=== PATIENT | female | born 1990 | race Caucasian/White ===

== ENCOUNTER 2016-12-13 19:14 | Emergency (ER) | payer SELFPAY ==
[~2016-12-13] VITALS: Ht 165.1 cm; Wt 70.3 kg
[~2016-12-13 19:14] MED LIST: ALPR.25T PO; DIAZ5TAB3 PO; FAMO20TA5 PO; FLUO20CA42 PO; ONDA-42 SL; ONDA8TAB13 PO; PROM25TA14 PO; SCR1T PO; SULF-222 PO
[2016-12-13] MEDS ORDERED: LACTATED RINGERS 1,000 ML IV ONE (19:55)
[2016-12-13] MEDS ORDERED: PROM25TA14 PO (19:55)
[2016-12-13 20:03] LABS: BILIRUBIN,URINE NEGATIVE (NEGATIVE); KETONES,URINE NEGATIVE (NEGATIVE); LEUKOCYTE ESTERASE ,URINE NEGATIVE (NEGATIVE); NITRITE,URINE NEGATIVE (NEGATIVE); PH,URINE 8 (5-9); PROTEIN,URINE NEGATIVE (NEGATIVE); UROBILINOGEN,URINE NORMAL (NORMAL)
[2016-12-13 20:27] LABS: BASOPHILS % (AUTO) 0 % (0-10); EOSINOPHILS % (AUTO) 1 % (0-10); LYMPHOCYTES # (AUTO) 1.8 X 10^3 (1.0-4.0); LYMPHOCYTES % (AUTO) 31 % (12-44); MEAN CORPUSCULAR HEMOGLOBIN 30 PG (25-34); MEAN CORPUSCULAR HGB CONC 34 G/DL (32-36); MEAN CORPUSCULAR VOLUME 89 FL (80-99); MEAN PLATELET VOLUME 10.6 FL (7.4-10.4); MONOCYTES # (AUTO) 0.6 X 10^3 (0.0-1.0); MONOCYTES % (AUTO) 11 % (0-12); NEUTROPHILS # (AUTO) 3.3 X 10^3 (1.8-7.8); NEUTROPHILS % (AUTO) 57 % (42-75); PLATELET COUNT 193 10^3/uL (130-400); RED BLOOD COUNT 4.59 10^6/uL (4.35-5.85); RED CELL DISTRIBUTION WIDTH 13.2 % (10.0-14.5); WHITE BLOOD COUNT 5.7 10^3/uL (4.3-11.0)
[2016-12-13 20:50] LABS: ALANINE AMINOTRANSFERASE 12 U/L (0-55); ALBUMIN 4.6 G/DL (3.2-4.5); AMYLASE 55 U/L (25-125); ANION GAP 9 MMOL/L (5-14); ASPARTATE AMINO TRANSFERASE 15 U/L (5-34); BILIRUBIN,TOTAL 1.2 MG/DL (0.1-1.0); BLOOD UREA NITROGEN 9 MG/DL (7-18); BUN/CREATININE RATIO 12; CALCIUM 9.4 MG/DL (8.5-10.1); CARBON DIOXIDE 23 MMOL/L (21-32); CHLORIDE 106 MMOL/L (98-107); CREATININE SERUM 0.75 MG/DL (0.60-1.30); GFR ESTIMATED > 60; GLUCOSE 84 MG/DL (70-105); LIPASE 15 U/L (8-78); MAGNESIUM 2.3 MG/DL (1.8-2.4); POTASSIUM 3.8 MMOL/L (3.6-5.0); SODIUM 138 MMOL/L (135-145)
[2016-12-13 20:52] LABS: ALCOHOL < 10 MG/DL (<10)
[2016-12-13 21:12] LABS: TROPONIN I < 0.30 NG/ML (<0.30)
--- NOTE | 2016-12-13 21:27 | ED General ---
General Chief Complaint: General Problems/Pain Stated Complaint: DIZZINESS,WEAKNESS Nursing Triage Note: Pt. advised she has been experiencing night sweats, has a hx. of chronic fatigue syndrome and advises pain in her hands. Pt. states she has had periods of nausea and dizziness for several weeks that has not improved. Nursing Sepsis Screen: No Definite Risk Source of Information: Patient History of Present Illness Time Seen by Provider: 19:55 Initial Comments PT ARRIVES VIA POV MULTIPLE COMPLAINTS PT STATES SHE "JUST HASN'T FELT GOOD FOR A COUPLE OF WEEKS" STATES SHE FEELS "WEAK AND DIZZY" PT STATES SHE HAS HAD NAUSEA AND DRY HEAVES OFF AND ON--THIS IS CHRONIC FOR YEARS AND IS NO DIFFERENT NOW. HAS PROMETHAZINE, BUT HAS NOT TAKEN ANY RECENTLY NO ABDOMINAL PAIN NO DIARRHEA NO FEVER ATE RAMEN NOODLES THIS AM, A COUPLE OF HOT DOGS AND SAUERKRAUT AND FRIED POTATOES AT 1500 TODAY. DRINKING FLUIDS WELL. NO COUGH / CONGESTION STATES SHE NEVER FEELS LIKE SHE IS GETTING ENOUGH AIR IN WHEN SHE BREATHES-- THIS IS ALSO A CHRONIC PROBLEM FOR YEARS AND IS NO DIFFERENT TODAY STATES SHE HAS HAD CHEST PAIN THIS AM--THIS IS ALSO A CHRONIC PROBLEM FOR MANY YEARS AND HAS SEEN MULTIPLE PROVIDERS AT MULTIPLE FACILITIES AND REPORTS THAT "THEY CAN'T EVER FIND ANYTHING WRONG" PT STATES SHE IS IS TRYING TO QUIT METH AND ALCOHOL STATES SHE LAST USED METH 2 DAYS AGO STATES SHE HAS BEEN DRINKING OVER 10 BEERS / DAY FOR THE LAST FEW MONTHS--LAST ETOH WAS AT 0100 PT STATES SHE " FROM HER 6 MONTHS AGO, BUT WE STILL LIVE TOGETHER" PT HAS NOT SOUGHT CARE FOR DRUG/ALCOHOL ABUSE IN THE PAST STATES SHE HAD AN APPOINTMENT AT [facility] LAST WEEK TO TRY TO GET OUTPATIENT TREATMENT FOR SUBSTANCE ABUSE BUT SHE "MISSED HER APPOINTMENT" AND HAS NOT ATTEMPTED TO RESCHEDULE. PCP:[facility] Allergies and Home Medications Allergies Coded Allergies: Penicillins (Verified Allergy, Intermediate, ANAPHYLAXIS, 12/30/11) Home Medications Promethazine HCl 25 Mg Tablet 25 MG PO Q6H PRN PRN NAUSEA/VOMITING (Reported) Constitutional: see HPI dizziness malaise weakness EENTM: no symptoms reported Respiratory: see HPINo cough Cardiovascular: see HPI Gastrointestinal: see HPINo abdominal pain, nauseaNo vomiting Genitourinary: no symptoms reported : No (NO CONTROL) LMP: Nov 30, 2016 Musculoskeletal: no symptoms reported Skin: no symptoms reported Psychiatric/Neurological: See HPIDenies Headache, Denies Numbness, Denies Paresthesia, Denies Seizure, Denies Tingling, Denies Tremors, Denies Weakness Hematologic/Lymphatic: No Symptoms Reported Immunological/Allergic: no symptoms reported Past Rledmje-Oryipt-Pxwoga Hx Patient Social History Alcohol Use: Regular Use (> 10 BEERS/DAY) Recreational Drug Use: Yes (METH, THC--DENIES IV DRUG USE) Drug of Choice: methamphetamine Smoking Status: Current Everyday Smoker (1 PPD) Type Used: Cigarettes, Pipe Recent Foreign Travel: No Contact w/Someone Who Travel: No Recent Infectious Disease Expo: No Recent Hopitalizations: No Immunizations Up To Date Tetanus Booster (TDap): Unknown Seasonal Allergies Seasonal Allergies: No Surgeries HX Surgeries: Yes (LEEP, DENTAL) Respiratory Hx Respiratory Disorders: No Cardiovascular Hx Cardiac Disorders: No Neurological Hx Neurological Disorders: No Reproductive System : No Hx Reproductive Disorders: Yes (CERVICAL DYSPLASIA--S/P LEEP) Sexually Transmitted Disease: No Genitourinary Hx Genitourinary Disorders: No Genitourinary Disorders: UTI-Chronic Gastrointestinal Hx Gastrointestinal Disorders: Yes (GASTRITIS) Gastrointestinal Disorders: Chronic Constipation, Chronic Diarrhea, Esophagitis , Irritable Bowel Musculoskeletal Hx Musculoskeletal Disorders: No Endocrine Hx Endocrine Disorders: No HEENT HX ENT Disorders: Yes (CHRONIC DENTAL PROBLEMS) Cancer Hx Cancer: No (CERVICAL DYSPLASIA--NOT ACTUAL CANCER, PER PT) Psychosocial Hx Psychiatric Problems: Yes Behavioral Health Disorders: Anxiety, PTSD, Depression Integumentary HX Skin/Integumentary Disorder: No Blood Transfusions Hx Blood Disorders: No Physical Exam Vital Signs Vital Sign - Last 12Hours 12/13/16 19:35 Temp 98.6 Pulse 85 Resp 16 B/P 138/78 Pulse Ox 100 O2 Delivery Room Air Capillary Refill : Less Than 3 Seconds General Appearance: No Apparent Distress WD/WN Other (DIRTY, MALODOROUS, VERY UNKEMPT, MULTIPLE SORES/SCARS/SCABS TO FACE) HEENT: PERRL/EOMI Normal ENT Inspection (EXCEPT POOR DENTITION) Neck: Full Range of Motion Normal Inspection Non Tender Supple Respiratory: Normal Breath Sounds No Accessory Muscle Use No Respiratory Distress Cardiovascular: Regular Rate, Rhythm No Edema No JVD No Murmur Normal Peripheral Pulses Gastrointestinal: Normal Bowel Sounds No Organomegaly No Pulsatile Mass Non Tender Soft Back: Normal Inspection No CVA Tenderness No Vertebral Tenderness Extremity: Normal Capillary Refill Normal Inspection Normal Range of Motion Non Tender No Calf Tenderness No Pedal Edema Neurologic/Psychiatric: Alert Oriented x3 No Motor/Sensory Deficits Normal Mood/Affect compliance review specialist II-XII Norm as TestedNo Abnormal Cerebellar Tests, Other ( SPEECH CLEAR, GAIT STEADY. PT VERY COOPERATIVE) Skin: Normal Color Warm/Dry Progress/Results/Core Measures Results/Orders Lab Results Laboratory Tests Test 12/13/16 19:28 12/13/16 20:09 Range/Units Ur Tricyclic Antidepressants Screen NEGATIVE NEGATIVE Urine Amphetamines Screen NEGATIVE NEGATIVE Urine Bacteria TRACE /HPF Urine Barbiturates Screen NEGATIVE NEGATIVE Urine Benzodiazepines Screen NEGATIVE NEGATIVE Urine Bilirubin NEGATIVE NEGATIVE Urine Cannabinoids Screen NEGATIVE NEGATIVE Urine Casts NONE /LPF Urine Clarity CLEAR Urine Cocaine Screen NEGATIVE NEGATIVE Urine Color YELLOW Urine Crystals NONE /LPF Urine Culture Indicated NO Urine Glucose (UA) NEGATIVE NEGATIVE Urine Ketones NEGATIVE NEGATIVE Urine Leukocyte Esterase NEGATIVE NEGATIVE Urine Methadone Screen NEGATIVE NEGATIVE Urine Methamphetamines Screen NEGATIVE NEGATIVE Urine Mucus NEGATIVE /LPF Urine Nitrite NEGATIVE NEGATIVE Urine Opiates Screen NEGATIVE NEGATIVE Urine Oxycodone Screen NEGATIVE NEGATIVE Urine Phencyclidine Screen NEGATIVE NEGATIVE Urine Propoxyphene Screen NEGATIVE NEGATIVE Urine Protein NEGATIVE NEGATIVE Urine RBC NONE /HPF Urine RBC (Auto) NEGATIVE NEGATIVE Urine Specific [place] 1.010 L 1.016-1.022 Urine Squamous Epithelial Cells 5-10 /HPF Urine Urobilinogen NORMAL NORMAL MG/DL Urine WBC NONE /HPF Urine pH 8 5-9 Alanine Aminotransferase (ALT/SGPT) 12 0-55 U/L Albumin 4.6 H 3.2-4.5 G/DL Alkaline Phosphatase 52 40-136 U/L Amylase Level 55 25-125 U/L Anion Gap 9 5-14 MMOL/L Aspartate Amino Transf (AST/SGOT) 15 5-34 U/L BUN/Creatinine Ratio 12 Basophils # (Auto) 0.0 0.0-0.1 10^3/uL Basophils (%) (Auto) 0 0-10 % Blood Urea Nitrogen 9 7-18 MG/DL Calcium Level 9.4 8.5-10.1 MG/DL Carbon Dioxide Level 23 21-32 MMOL/L Chloride Level 106 98-107 MMOL/L Creatinine 0.75 0.60-1.30 MG/DL Eosinophils # (Auto) 0.0 0.0-0.3 10^3/uL Eosinophils (%) (Auto) 1 0-10 % Estimat Glomerular Filtration Rate > 60 Glucose Level 84 70-105 MG/DL Hematocrit 41 35-52 % Hemoglobin 13.9 11.5-16.0 G/DL Lipase 15 8-78 U/L Lymphocytes # (Auto) 1.8 1.0-4.0 X 10^3 Lymphocytes (%) (Auto) 31 12-44 % Magnesium Level 2.3 1.8-2.4 MG/DL Mean Corpuscular Hemoglobin 30 25-34 PG Mean Corpuscular Hemoglobin Concent 34 32-36 G/DL Mean Corpuscular Volume 89 80-99 FL Mean Platelet Volume 10.6 H 7.4-10.4 FL Monocytes # (Auto) 0.6 0.0-1.0 X 10^3 Monocytes (%) (Auto) 11 0-12 % Neutrophils # (Auto) 3.3 1.8-7.8 X 10^3 Neutrophils (%) (Auto) 57 42-75 % Platelet Count 193 130-400 10^3/uL Potassium Level 3.8 3.6-5.0 MMOL/L Red Blood Count 4.59 4.35-5.85 10^6/uL Red Cell Distribution Width 13.2 10.0-14.5 % Serum Alcohol < 10 <10 MG/DL Sodium Level 138 135-145 MMOL/L TSH [place] Testing 1.07 0.35-4.94 UIU/ML Total Bilirubin 1.2 H 0.1-1.0 MG/DL Total Protein 7.0 6.4-8.2 G/DL Troponin I < 0.30 <0.30 NG/ML White Blood Count 5.7 4.3-11.0 10^3/uL My Orders Orders-KATHRINE GUALLPA DO Saline Lock/Iv-Start (12/13/16 19:55) Urine Bedside (12/13/16 19:55) Ekg Tracing (12/13/16 19:55) Monitor-Rhythm Ecg Trace Only (12/13/16 19:55) Alcohol (12/13/16 19:55) Amylase (12/13/16 19:55) Cbc With Automated Diff (12/13/16 19:55) Comprehensive Metabolic Panel (12/13/16 19:55) Drug Screen Stat (Urine) (12/13/16 19:55) Lipase (12/13/16 19:55) Magnesium (12/13/16 19:55) Thyroid Analyzer (12/13/16 19:55) Troponin I (12/13/16 19:55) Ua Culture If Indicated (12/13/16 19:55) Saline Lock/Iv-Start (12/13/16 19:55) Lactated Ringers (Lr 1000 Ml Iv Solution (12/13/16 19:55) Orthostatic Vital Signs (12/13/16 19:55) Medications Given in ED Vital Signs/I&O Blood Pressure Mean: 98 Point of Care Testing Urine -Bedside: Negative Progress Note : Progress Note UNEVENTFUL ER STAY ECG Initial ECG Impression Time: 20:22 Initial ECG Rate: 70 Initial ECG Rhythm: Normal Sinus Initial ECG Impression: Normal Initial ECG Comparisson: Unchanged Departure Impression Impression: Primary Impression: Alcohol abuse Additional Impressions: Alcohol dependence Methamphetamine abuse Malaise Disposition: 01 HOME, SELF-CARE Condition: Stable Departure-Patient Inst. Referrals: [facility] (PCP/Family) Primary Care Physician Patient Instructions: ALCOHOL AND SUBSTANCE ABUSE Add. Discharge Instructions: LOTS OF CLEAR LIQUIDS--WATER, BROTH, JELLO, GATORADE EAT AT LEAST 3 MEALS A DAY FOLLOW UP WITH [facility] THIS WEEK FOR FURTHER CARE AND SUBSTANCE ABUSE TREATMENT All discharge instructions reviewed with patient and/or family. Voiced understanding. KATHRINE GUALLPA DO Dec 13, 2016 21:27
[2016-12-13 21:45] VITALS: BP 134/96
== END 2016-12-13 21:39 | disposition home or self-care (01) ==
LOC: EDUNIT# 19:14 → ER 19:16
DX: F10.20 Alcohol dependence, uncomplicated (principal); F15.20 Other stimulant dependence, uncomplicated; R53.81 Other malaise; F17.210 Nicotine dependence, cigarettes, uncomplicated
CPT/HCPCS: 36415; 80053; 80306; 80320; 81000; 82150; 83690; 83735; 84443; 84484; 84703; 85025; 93005; 93041; 96360

== ENCOUNTER → 2017-03-15 | Outpatient (CLI) | payer MEDICAID ==
--- NOTE | 2017-03-15 13:26 | Diagnostic Imaging Report ---
PROCEDURE: US OB SINGLE FETUS <14 WKS. TECHNIQUE: Multiple real-time grayscale images were obtained over the gravid uterus in various projections. INDICATION: Dating. FINDINGS: There is a twin intrauterine with a thickened membrane and delta sign, suggestive of a dichorionic twin . The crown-rump length is at 11 weeks and 0 days in both embryos with a corresponding SANAM of 10/04/2017. Embryo A, closer to the cervix and to the right side of the uterus, has a heart rate of 172 BPM. Embryo B, which is fundal and to the left, has a heart rate of 172 BPM as well. IMPRESSION: Dichorionic diamniotic twin . The SANAM is 10/04/2017. Dictated by: Dictated on workstation # [id number]
== END ==
LOC: RAD 10:17
PROVIDERS: ATTEND Family Medicine
DX: Z34.81 Encounter for supervision of other normal pregnancy, first trimester (principal)
CPT/HCPCS: 76801

== ENCOUNTER 2017-04-13 19:25 | Emergency (ER) | payer SELFPAY ==
[~2017-04-13] VITALS: Ht 165.1 cm; Wt 70.3 kg
[2017-04-13] MEDS ORDERED: ONDN4T (19:40)
[2017-04-13] MEDS ORDERED: [UNRECOGNIZED DRUG - CODE] (19:40)
[2017-04-13 20:27] LABS: BILIRUBIN,URINE NEGATIVE (NEGATIVE); KETONES,URINE NEGATIVE (NEGATIVE); LEUKOCYTE ESTERASE ,URINE NEGATIVE (NEGATIVE); NITRITE,URINE NEGATIVE (NEGATIVE); PH,URINE 6.5 (5-9); PROTEIN,URINE NEGATIVE (NEGATIVE); UROBILINOGEN,URINE NORMAL (NORMAL)
[2017-04-13 20:41] LABS: WBC,URINE 0-2 /HPF
--- NOTE | 2017-04-13 20:44 | ED GI ---
General Chief Complaint: Abdominal/GI Problems Stated Complaint: LT SIDED RIB/STOMACH/PELVIC PAIN Nursing Triage Note: c/o constipation for weeks, patient reports she is about 16 weeks with twins Sepsis Screen: No Definite Risk History of Present Illness Time Seen By Provider: 20:05 Initial Comments Patient reports constipation since finding out she is . She does report that she passed several small hard stools today. She often requires digital assistance to evacuate the stool from the rectum. She has had some nausea and vomiting with the and taking Zofran on occasion. She reports that she was initially seen by Dr. Montesinos however since finding out she was having twins, she is recommended referring her to a different OB doctor. She is taking vitamins daily. She states that she has had poor intake of solid and liquid foods. Timing/Duration: Constant Severity/Quality: Moderate Location: Suprapubic Radiation: No Radiation Activities at Onset: None Modifying Factors: Improves With Defecating Associated Symptoms: Nausea/Vomiting Allergies and Home Medications Allergies Coded Allergies: Penicillins (Verified Allergy, Intermediate, ANAPHYLAXIS, 12/30/11) Home Medications Ondansetron HCl 4 Mg Tab, (Reported) Vit/Iron Fumarate/FA 1 Each Tablet, (Reported) Review of Systems Constitutional: no symptoms reported, see HPI EENTM: No Symptoms Reported, See HPI Respiratory: No Symptoms Reported, See HPI Cardiovascular: No Symptoms Reported, See HPI Gastrointestinal: See HPI, Constipated, Poor Appetite, Poor Fluid Intake Genitourinary: No Symptoms Reported, See HPI Musculoskeletal: no symptoms reported, see HPI Skin: no symptoms reported, see HPI Psychiatric/Neurological: No Symptoms Reported, See HPI Endocrine: No Symptoms Reported, See HPI Hematologic/Lymphatic: No Symptoms Reported, See HPI All Other Systems Reviewed Negative Unless Noted: Yes Past Yzucdzi-Rdxabh-Vuauvt Hx Patient Social History Alcohol Use: Past History Recreational Drug Use: No Drug of Choice: methamphetamine Smoking Status: Former Smoker Type Used: Cigarettes, Pipe Recent Foreign Travel: No Contact w/Someone Who Travel: No Recent Infectious Disease Expo: No Recent Hopitalizations: No Immunizations Up To Date Tetanus Booster (TDap): Unknown Seasonal Allergies Seasonal Allergies: No Surgeries HX Surgeries: Yes (LEEP, DENTAL) Respiratory Hx Respiratory Disorders: No Cardiovascular Hx Cardiac Disorders: No Neurological Hx Neurological Disorders: No Reproductive System Hx Reproductive Disorders: Yes (CERVICAL DYSPLASIA--S/P LEEP) Sexually Transmitted Disease: No Genitourinary Hx Genitourinary Disorders: No Genitourinary Disorders: UTI-Chronic Gastrointestinal Hx Gastrointestinal Disorders: Yes (GASTRITIS) Gastrointestinal Disorders: Chronic Constipation, Chronic Diarrhea, Esophagitis , Irritable Bowel Musculoskeletal Hx Musculoskeletal Disorders: No Endocrine Hx Endocrine Disorders: No HEENT HX ENT Disorders: Yes (CHRONIC DENTAL PROBLEMS) Cancer Hx Cancer: No (CERVICAL DYSPLASIA--NOT ACTUAL CANCER, PER PT) Cancer: Cervical Psychosocial Hx Psychiatric Problems: Yes Behavioral Health Disorders: Anxiety, PTSD, Depression Integumentary HX Skin/Integumentary Disorder: No Blood Transfusions Hx Blood Disorders: No Reviewed Nursing Assessment Reviewed/Agree w Nursing PMH: Yes Physical Exam Vital Signs VS - Last 72 Hours, by Label 04/13/17 19:37 Temp 98.2 Pulse 75 Resp 18 B/P (MAP) 139/83 Pulse Ox 100 O2 Delivery Room Air Capillary Refill : Less Than 3 Seconds General Appearance: WD/WN, no apparent distress HEENT: PERRL/EOMI, normal ENT inspection, TMs normal, pharynx normal, other ( oral mucosa is pink and moist) Neck: non-tender, full range of motion, supple, normal inspection Respiratory: chest non-tender, lungs clear, normal breath sounds Cardiovascular: normal peripheral pulses, regular rate, rhythm, no edema, no murmur Gastrointestinal: normal bowel sounds, non tender, soft, no organomegaly, No distended, No guarding, No rebound, No tenderness Extremities: normal range of motion, non-tender, normal inspection, no pedal edema, no calf tenderness, normal capillary refill Back: normal inspection, no CVA tenderness, no vertebral tenderness Neurologic/Psychiatric: no motor/sensory deficits, alert, normal mood/affect, oriented x 3 Skin: normal color, warm/dry Lymphatic: no adenopathy Progress/Results/Core Measures Results/Orders Lab Results Laboratory Tests Test 04/13/17 20:20 Range/Units Urine Color YELLOW Urine Clarity CLEAR Urine pH 6.5 5-9 Urine Specific [place] 1.010 L 1.016-1.022 Urine Protein NEGATIVE NEGATIVE Urine Glucose (UA) NEGATIVE NEGATIVE Urine Ketones NEGATIVE NEGATIVE Urine Nitrite NEGATIVE NEGATIVE Urine Bilirubin NEGATIVE NEGATIVE Urine Urobilinogen NORMAL NORMAL MG/DL Urine Leukocyte Esterase NEGATIVE NEGATIVE Urine RBC (Auto) NEGATIVE NEGATIVE Urine RBC NONE /HPF Urine WBC 0-2 /HPF Urine Squamous Epithelial Cells 2-5 /HPF Urine Crystals NONE /LPF Urine Bacteria FEW H /HPF Urine Casts NONE /LPF Urine Mucus NEGATIVE /LPF Urine Culture Indicated NO My Orders Orders - DANA ANDREW Ua Culture If Indicated (04/13/17 20:22) Vital Signs/I&O Vital Sign - Last 12Hours 04/13/17 19:37 Temp 98.2 Pulse 75 Resp 18 B/P (MAP) 139/83 Pulse Ox 100 O2 Delivery Room Air Blood Pressure Mean: 101 Departure Impression Impression: Primary Impression: Constipation during in second trimester Disposition: HOME, SELF-CARE Condition: Stable Departure-Patient Inst. Referrals: NO,LOCAL PHYSICIAN (PCP) Primary Care Physician Patient Instructions: Constipation, Adult (DC), Nausea and Vomiting of (DC) Add. Discharge Instructions: Increase water intake, 96 ounces a day. Try eating high-fiber foods including fruits and vegetables, specifically 2-3 servings of prunes daily. Try to walk 10-15 minutes 2-3 times a day. Begin taking ragj-dij-hzwbpre stool softener, Colace. Get established with OB Doctor, Try Calling [facility] or [facility]. Unable to get established with them to please call [facility] until your referral is made. Return to emergency department for fever, continued constipation with abdominal pain, poor fluid or food intake, difficulty breathing, vaginal bleeding, or any new complaints. All discharge instructions reviewed with patient and/or family. Voiced understanding. Copy Copies To 1: TARUN MONTESINOS MD, AMY ARNP Apr 13, 2017 20:44
[2017-04-13 20:55] VITALS: BP 139/83
== END 2017-04-13 20:55 | disposition home or self-care (01) ==
LOC: EDUNIT# 19:25 → ER 19:28
DX: O99.612 Diseases of the digestive system complicating pregnancy, second trimester (principal); K59.00 Constipation, unspecified; Z3A.16 16 weeks gestation of pregnancy; Z87.891 Personal history of nicotine dependence
CPT/HCPCS: 81000; 99282

== ENCOUNTER 2021-01-02 23:11 | Outpatient (CLI) | payer MEDICAID ==
[~2021-01-02] VITALS: Ht 160 cm; Wt 88.7 kg
[~2021-01-02 23:11] MED LIST changes: +ONDN4T; +[UNRECOGNIZED DRUG - CODE]
[2021-01-02 23:42] LABS: BILIRUBIN,URINE NEGATIVE (NEGATIVE); CLARITY,URINE SL CLOUDY; COLOR,URINE YELLOW; GLUCOSE, URINE (UA) NEGATIVE (NEGATIVE); KETONES,URINE NEGATIVE (NEGATIVE); LEUKOCYTE ESTERASE ,URINE 1+ (NEGATIVE); NITRITE,URINE NEGATIVE (NEGATIVE); PROTEIN,URINE NEGATIVE (NEGATIVE)
[2021-01-02 23:53] VITALS: BP 130/75
[2021-01-02 23:53] LABS: AMORPHOUS SEDIMENT,UR FEW AMOR URATES /LPF; BACTERIA,URINE MODERATE /HPF
[2021-01-03 00:02] LABS: AMPHETAMINE SCREEN, URINE NEGATIVE (NEGATIVE); BARBITURATE SCREEN URINE NEGATIVE (NEGATIVE); BENZODIAZEPINES SCREEN URINE NEGATIVE (NEGATIVE); CANNABINOID SCREEN, URINE NEGATIVE (NEGATIVE); COCAINE SCREEN URINE NEGATIVE (NEGATIVE); METHADONE STAT NEGATIVE (NEGATIVE); METHAMPHETAMINE SCREEN URINE S NEGATIVE (NEGATIVE); OPIATE SCREEN URINE NEGATIVE (NEGATIVE); OXYCODONE STAT NEGATIVE (NEGATIVE); PROPOXYPHENE STAT NEGATIVE (NEGATIVE); TRICYCLIC ANTIDEPRESSANTS SCRE NEGATIVE (NEGATIVE)
[2021-01-03] MEDS ORDERED: cefTRIAXone 1,000 MG IV (ROCEPHIN) VIAL ONE (00:09)
[2021-01-03] MEDS ORDERED: WATER (STERILE) FOR INJECTION 10 ML ONE (00:10)
[2021-01-03 00:15] VITALS: BP 130/75
[2021-01-03] MEDS ORDERED: cefTRIAXone FOR IV USE 1,000 MG in WATER (STERILE) FOR INJECTION 10 ML IV ONE (00:15)
[2021-01-03] MEDS ORDERED: LACTATED RINGERS 1,000 ML IV SCH (00:15)
--- NOTE | 2021-01-04 08:10 | Physician Query-Final Dx ---
ROBIN TAPIA 01/04/21 0810: Clinic Account Progress/Dx Physician Query: Please give diagnosis Please include # weeks gestation Date of Service Jan 02, 2021 at 23:11 RIAZ VILLAFUERTE MD 01/04/21 1404: Clinic Account Progress/Dx DIAGNOSIS: Diagnosis contractions 33 weeks gestation Left against medical advice ROBIN TAPIA Jan 04, 2021 08:10 RIAZ VILLAFUERTE MD Jan 04, 2021 14:04
== END 2021-01-03 01:55 | disposition left against medical advice (07) ==
LOC: WSo 23:11 → LDRP 23:11 → WSo 01-03 01:55
PROVIDERS: ATTEND Family Medicine
DX: O62.9 Abnormality of forces of labor, unspecified (principal); Z3A.33 33 weeks gestation of pregnancy
CPT/HCPCS: 80306; 81000; 87088; 96361; 96374; G0463; 99213

== ENCOUNTER 2021-01-06 09:43 | Outpatient (CLI) | payer MEDICAID ==
[~2021-01-06] VITALS: Ht 160 cm; Wt 89.0 kg
[2021-01-06 10:05] VITALS: BP 123/66
[2021-01-06 10:09] VITALS: BP 123/66
[2021-01-06 12:06] LABS: BILIRUBIN,URINE NEGATIVE (NEGATIVE); CLARITY,URINE CLEAR; COLOR,URINE YELLOW; GLUCOSE, URINE (UA) NEGATIVE (NEGATIVE); KETONES,URINE NEGATIVE (NEGATIVE); LEUKOCYTE ESTERASE ,URINE NEGATIVE (NEGATIVE); NITRITE,URINE NEGATIVE (NEGATIVE); PROTEIN,URINE NEGATIVE (NEGATIVE)
[2021-01-06 12:11] LABS: BACTERIA,URINE FEW /HPF
[2021-01-06 12:12] LABS: GRANULAR CASTS,URINE RARE /LPF
[2021-01-06 13:20] VITALS: BP 123/66
--- NOTE | 2021-01-07 08:25 | Physician Query-Final Dx ---
ROBIN TAPIA 01/07/21 0825: Clinic Account Progress/Dx Physician Query: Please give diagnosis Please include # weeks gestation Date of Service Jan 06, 2021 at 09:43 MARIUSZ ACOSTA DO 01/09/21 181: Clinic Account Progress/Dx DIAGNOSIS: Diagnosis 33 week GA Abdominal pain Diarrhea ROBIN TAPIA Jan 07, 2021 08:25 MARIUSZ ACOSTA DO Jan 09, 2021 18:11
== END 2021-01-06 13:20 | disposition home or self-care (01) ==
LOC: WSo 09:43 → LDRP 09:44 → WSo 13:20
PROVIDERS: ATTEND Family Medicine
DX: O26.893 Other specified pregnancy related conditions, third trimester (principal); Z3A.33 33 weeks gestation of pregnancy
CPT/HCPCS: 81000; 87804; G0463; U0002; 87635; 99213

== ENCOUNTER 2021-01-08 04:59 | Emergency (ER) | payer MEDICAID ==
[~2021-01-08] VITALS: Ht 160 cm; Wt 85.7 kg
[2021-01-08 05:07] VITALS: BP 147/83
--- NOTE | 2021-01-08 05:33 | ED GU-Female ---
General Chief Complaint: OB > 20 WEEKS Stated Complaint: 34 WK PREG,LABOR Nursing Triage Note: PT AMBULATE TO ROOM FS02 WITH C/O CONTRACTIONS EVERY 3 MINUTES FOR OVER AN HOUR. PT REPORTS SHE LIVES IN [place], [place] AND CAME TO [facility] BECAUSE SHE WAS SEEN AT [facility] IN . PT REPORTS SHE IS 34 WEEKS . PT REPORTS THAT SHE IS SUPPOSED TO DELIVER IN [facility] AND THAT HER MOM WANTED HER TO COME TO [facility] BECAUSE SHE WAS SEEN AT [facility] IN . Nursing Sepsis Screen: No Definite Risk Source: patient History of Present Illness Date Seen by Provider: Jan 08, 2021 Time Seen by Provider: 05:15 Initial Comments Patient is a G2, P2, 34-week gestation female who presents with uterine contractions every 3 to 5 minutes starting proximal 2 hours ago. No rupture of membranes. Patient states she has been dilated for 3 for the past couple weeks. No complications with current . Patient's OB is Dr. Montesinos out of [facility] Timing/Duration: just prior to arrival Severity/Quality: moderate Location: suprapubic Radiation: suprapubic Activities at Onset: other Sexual [place] History: other Modifying Factors: Improves With Other Associated Symptoms: denies symptoms Allergies and Home Medications Allergies Coded Allergies: Penicillins (Verified Allergy, Intermediate, ANAPHYLAXIS, 12/30/11) Patient Home Medication List Home Medication List Reviewed: Yes Review of Systems Review of Systems Constitutional: see HPI EENTM: see HPI Respiratory: see HPI Cardiovascular: see HPI Genitourinary: see HPI : Yes Musculoskeletal: see HPI Skin: see HPI Endocrine: See HPI Hematologic/Lymphatic: See HPI All Other Systemes Reviewed Negative Unless Noted: Yes Past Ayftbky-Oujhuv-Oprypn Hx Past Med/Social Hx: Reviewed Nursing Past Med/Soc Hx Patient Social History Alcohol Use: Occasionally Uses Number of Drinks Today: AA Alcohol Beverage of Choice: Beer Drug of Choice: methamphetamine Smoking Status: Former Smoker Type Used: Cigarettes Former Smoker, Quit: Sep 08, 2020 2nd Hand Smoke Exposure: Yes Recent Infectious Disease Expo: No Recent Hopitalizations: No Immunizations Up To Date Tetanus Booster (TDap): Unknown Date of Influenza Vaccine: Sep 23, 2020 Seasonal Allergies Seasonal Allergies: No Past Medical History Surgeries: Yes (LEEP, DENTAL) Respiratory: No Cardiac: No Neurological: No Reproductive Disorders: Yes (CERVICAL DYSPLASIA--S/P LEEP) Sexually Transmitted Disease: No UTI-Chronic Gastrointestinal: Yes (GASTRITIS) Chronic Constipation, Chronic Diarrhea, Esophagitis, Irritable Bowel Musculoskeletal: No Endocrine: No Cancer: No (CERVICAL DYSPLASIA--NOT ACTUAL CANCER, PER PT) Cervical Psychosocial: Yes Anxiety, PTSD, Depression Integumentary: No Blood Disorders: No Physical Exam Vital Signs Vital Signs - First Documented 01/08/21 05:07 Temp 36.6 Pulse 86 Resp 18 B/P (MAP) 147/83 (104) O2 Delivery Room Air Capillary Refill : Less Than 3 Seconds Height, Weight, BMI Height: 5'5" Weight: 155lbs. oz. [id number]; 33.00 BMI Method:Stated General Appearance: mild distress HEENT: PERRL/EOMI, TMs normal, pharynx normal Cardiovascular: normal peripheral pulses Respiratory: lungs clear Gastrointestinal: soft, other (Gravid abdomen, above diaphragm) Pelvic: other (Patient is not , bloody show or rupture of membranes. 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 No bloody show rupture of membranes. Dr. Kapadia accepts to [facility] Impression Primary Impression: Labor, threatened, premature Disposition: XFER SHT-TRM HOSP Condition: Stable Admissions Decision to Admit Reason: Admit from ER (General) Decision to Admit/Date: Jan 08, 2021 Time/Decision to Admit Time: 05:30 Transfer Transfer Reason: Exceeds level of care Time Spoke to Accepting Phy: 05:30 (Dr. Kapadia) Method of Transfer: EMS Departure-Patient Inst. Referrals: TARUN MONTESINOS MD (PCP/Family) Primary Care Physician KARIME RM DO Jan 08, 2021 05:33
[2021-01-08] MEDS ORDERED: ONDANSETRON 4 MG/2 ML (SDV) Z0FRAN IVP ONE (05:45)
[2021-01-08] MEDS ORDERED: fentaNYL INJECTION 100 MCG/2 ML AMP IVP ONE (05:45)
[2021-01-08] MEDS ORDERED: PREN-102 PO (12:56)
== END 2021-01-08 05:43 | disposition home or self-care (01) ==
LOC: ER FS 04:59 → EDUNIT# 04:59 → ER FS 05:43
DX: O47.03 False labor before 37 completed weeks of gestation, third trimester (principal); Z3A.34 34 weeks gestation of pregnancy; Z88.0 Allergy status to penicillin; Z85.41 Personal history of malignant neoplasm of cervix uteri; Z87.891 Personal history of nicotine dependence
CPT/HCPCS: 99282

== ENCOUNTER 2021-01-08 06:24 | Inpatient (IN) | payer MEDICAID ==
[2021-01-08] VITALS (20 sets, daily range): BP systolic 108–177; BP diastolic 58–84
[2021-01-08] MEDS ORDERED: D5 LR IV SOLUTION 1,000 ML IV ONE (06:35)
[2021-01-08 06:56] LABS: BILIRUBIN,URINE NEGATIVE (NEGATIVE); CLARITY,URINE SL CLOUDY; COLOR,URINE YELLOW; GLUCOSE, URINE (UA) NEGATIVE (NEGATIVE); KETONES,URINE NEGATIVE (NEGATIVE); LEUKOCYTE ESTERASE ,URINE TRACE (NEGATIVE); NITRITE,URINE NEGATIVE (NEGATIVE); PROTEIN,URINE NEGATIVE (NEGATIVE)
[2021-01-08] MEDS ORDERED: D5 LR IV SOLUTION 1,000 ML IV SCH ×2 (07:00→07:15)
[2021-01-08] MEDS ORDERED: MINERAL OIL CONCENTRATE 99.9% 15 ML UDC TOP PRN (07:00)
[2021-01-08 07:04] LABS: BACTERIA,URINE NEGATIVE /HPF; WBC,URINE 0-2 /HPF
[2021-01-08 07:07] LABS: BASOPHILS # (AUTO) 0.1 10^3/uL (0.0-0.1); BASOPHILS % (AUTO) 1 % (0-10); EOSINOPHILS # (AUTO) 0.1 10^3/uL (0.0-0.3); EOSINOPHILS % (AUTO) 1 % (0-10); HEMATOCRIT 36 % (35-52); LYMPHOCYTES # (AUTO) 2.7 10^3/uL (1.0-4.0); LYMPHOCYTES % (AUTO) 21 % (12-44); MEAN CORPUSCULAR HEMOGLOBIN 31 pg (25-34); MEAN CORPUSCULAR HGB CONC 33 g/dL (32-36); MEAN CORPUSCULAR VOLUME 92 fL (80-99); MEAN PLATELET VOLUME 11.5 fL (9.0-12.2); MONOCYTES % (AUTO) 8 % (0-12); NEUTROPHILS # (AUTO) 8.6 10^3/uL (1.8-7.8); NEUTROPHILS % (AUTO) 67 % (42-75); PLATELET COUNT 212 10^3/uL (130-400); WHITE BLOOD COUNT 12.8 10^3/uL (4.3-11.0)
[2021-01-08 07:25] LABS: AMPHETAMINE SCREEN, URINE NEGATIVE (NEGATIVE); BARBITURATE SCREEN URINE NEGATIVE (NEGATIVE); BENZODIAZEPINES SCREEN URINE NEGATIVE (NEGATIVE); CANNABINOID SCREEN, URINE NEGATIVE (NEGATIVE); COCAINE SCREEN URINE NEGATIVE (NEGATIVE); METHADONE STAT NEGATIVE (NEGATIVE); METHAMPHETAMINE SCREEN URINE S NEGATIVE (NEGATIVE); OPIATE SCREEN URINE NEGATIVE (NEGATIVE); OXYCODONE STAT NEGATIVE (NEGATIVE); PROPOXYPHENE STAT NEGATIVE (NEGATIVE); TRICYCLIC ANTIDEPRESSANTS SCRE NEGATIVE (NEGATIVE)
[2021-01-08] MEDS ORDERED: ceFAZolin 2 GM IV Premixed 50 ML IV SCH (07:49)
--- NOTE | 2021-01-08 08:30 | History & Physical-OB ---
OB - Chief Complaint & HPI Date/Time Date of Admission: Date of Admission: Jan 08, 2021 at 06:41 Date seen by a Provider: Jan 08, 2021 Time Seen by a Provider: 08:30 Chief Complaint/History OB-Reason for Admission/Chief: Labor Hx : 4 Hx Para: 0222 Expected Date of Delivery: Jan 08, 2021 Gestational Age in Weeks: 34 Gestational Age in Days: 4 Other 30 yo with limited care, states she had contractions every 3 minutes starting around 4 this morning and is also very nauseated. She had recent flu like illness with headache and body aches and took 800 mg of ibuprofen a few times in the last couple of days. She was seen here for the symptoms and tested negative for influenza and COVID19, and she states she is feeling better now. She reports her first visit was in [place] and she says around 8 weeks, but her mother says she was several months along. She states her first ultrasound was in [place] and she was told she was 21 weeks at that time and that is what her due date was based on. She had a history of short cervix with her twin gestation 3 years ago and was admitted around 16 weeks and delivered at 26 weeks. Allergies and Home Medications Allergies Coded Allergies: Penicillins (Verified Allergy, Intermediate, ANAPHYLAXIS, pt has received Rocephin w/o issue, 01/08/21) Patient Home Medication List Home Medication List Reviewed: Yes OB - History Hx of Present Care: Yes Ultrasounds: Normal mid trimester US (per patient report had normal 21 week US, results not available) Obstetrical Complications: Other (late and limited care, labor, recurrent UTI) Information Induced Hypertension: No Maternal Gestational Diabetes: No Hemorrhage: No Obstetrical History Hx : 4 Hx Para: 2 Hx # Term Pregnancies: 0 Hx # Pregnancies: 2 Number of Living Children: 2 Hx Termination: No Hx Total # of Abortions (Spona: 2 Hx Multiple Gestation: Yes Hx Ectopic : No Hx Stillbirth: No Hx Complication: No Hx Induced Hypertens: No Hx Maternal Gestational Diabet: No Hx Hemorrhage: No Delivery History Hx Dystocia: No Hx Forceps Assisted Delivery: No Hx Vacuum Extraction Assisted: No Hx Placenta Abnormality: No Hx Distress: No Hx Large For Gestational Age I: No Hx Small for Gestational Age I: No Hx Section: No Hx Vaginal Delivery Post C-Sec: No Hx Blood Disorders: No Adverse Rxn to Tranfusion: No Patient Past Medical History PMHx: Chronic fatigue syndrome Migraines Depression Anxiety SurgHx: [place] teeth LEEP Social History/Family History Alcohol Use: Denies Use Recreational Drug Use: No Smoking Cessation: Former smoker 2nd Hand Smoke Exposure: Yes Immunizations Tetanus Booster (TDap): Unknown Date of Influenza Vaccine: Sep 10, 2021 Rubella: unknown RPR/VDRL: Unknown GBS Status: Unknown HBsAG: Unknown OB - Admission Exam Physical Exam Vitals: Vital Signs 01/08/21 06:42 Temp 37.0 Pulse 57 Resp 18 Pulse Ox 98 O2 Delivery Room Air HEENT: NCAT Heart: Rhythm Normal Lungs: Clear, Equal Abdomen: Gravid Extremities: Normal Cervical Dilatation: 5cm Effacement: Other (80) Membranes: Intact Heart Rate: 120's Accelerations: Accelerations Present Decelerations: No Decelerations Department Supervisor Variability: Average (6-25) Contractions on Admission: < 5 Minutes Apart Intensity: Moderate Labs Laboratory Tests Test 01/08/21 06:25 01/08/21 06:50 Range/Units Urine Color YELLOW Urine Clarity SL CLOUDY Urine pH 6.0 5-9 Urine Specific [place] 1.015 L 1.016-1.022 Urine Protein NEGATIVE NEGATIVE Urine Glucose (UA) NEGATIVE NEGATIVE Urine Ketones NEGATIVE NEGATIVE Urine Nitrite NEGATIVE NEGATIVE Urine Bilirubin NEGATIVE NEGATIVE Urine Urobilinogen 0.2 < = 1.0 MG/DL Urine Leukocyte Esterase TRACE H NEGATIVE Urine RBC (Auto) NEGATIVE NEGATIVE Urine RBC NONE /HPF Urine WBC 0-2 /HPF Urine Squamous Epithelial Cells 5-10 /HPF Urine Crystals NONE /LPF Urine Bacteria NEGATIVE /HPF Urine Casts NONE /LPF Urine Mucus NEGATIVE /LPF Urine Culture Indicated NO Urine Opiates Screen NEGATIVE NEGATIVE Urine Oxycodone Screen NEGATIVE NEGATIVE Urine Methadone Screen NEGATIVE NEGATIVE Urine Propoxyphene Screen NEGATIVE NEGATIVE Urine Barbiturates Screen NEGATIVE NEGATIVE Ur Tricyclic Antidepressants Screen NEGATIVE NEGATIVE Urine Phencyclidine Screen NEGATIVE NEGATIVE Urine Amphetamines Screen NEGATIVE NEGATIVE Urine Methamphetamines Screen NEGATIVE NEGATIVE Urine Benzodiazepines Screen NEGATIVE NEGATIVE Urine Cocaine Screen NEGATIVE NEGATIVE Urine Cannabinoids Screen NEGATIVE NEGATIVE White Blood Count 12.8 H 4.3-11.0 10^3/uL Red Blood Count 3.94 3.80-5.11 10^6/uL Hemoglobin 12.0 11.5-16.0 g/dL Hematocrit 36 35-52 % Mean Corpuscular Volume 92 80-99 fL Mean Corpuscular Hemoglobin 31 25-34 pg Mean Corpuscular Hemoglobin Concent 33 32-36 g/dL Red Cell Distribution Width 13.2 10.0-14.5 % Platelet Count 212 130-400 10^3/uL Mean Platelet Volume 11.5 9.0-12.2 fL Immature Granulocyte % (Auto) 3 % Neutrophils (%) (Auto) 67 42-75 % Lymphocytes (%) (Auto) 21 12-44 % Monocytes (%) (Auto) 8 0-12 % Eosinophils (%) (Auto) 1 0-10 % Basophils (%) (Auto) 1 0-10 % Neutrophils # (Auto) 8.6 H 1.8-7.8 10^3/uL Lymphocytes # (Auto) 2.7 1.0-4.0 10^3/uL Monocytes # (Auto) 1.0 0.0-1.0 10^3/uL Eosinophils # (Auto) 0.1 0.0-0.3 10^3/uL Basophils # (Auto) 0.1 0.0-0.1 10^3/uL Immature Granulocyte # (Auto) 0.4 H 0.0-0.1 10^3/uL OB - Assessment/Plan/Diagnosis Assessment Assessment: labor Admission Dx labor 34 weeks gestation Limited care Admission Status: Inpatient Order (span 2 midnights) Reason for Inpatient Admission: Labor, delivery and course Plan Problems: (1) labor Assessment & Plan: Betamethasone, IVF and expectant monitoring. Qualifiers: (2) 34 weeks gestation of (3) Mother's group B Streptococcus colonization status unknown Assessment & Plan: Cefazolin due to PCN allergy, has tolerated ceftriaxone in past. (4) Limited care Assessment & Plan: Check HIV, Hep B, RPR, Hep C and rubella status. GC/chlamydia urine culture. Qualifiers: Qualified Codes: O09.33 - Supervision of with insufficient care, third trimester RIAZ VILLAFUERTE MD Jan 08, 2021 08:30
[2021-01-08] MEDS ORDERED: BETAMETHASONE ACE/NA PHOS 6 MG/ML (CELESTONE SOLUSPAN) IM SCH (09:00)
[2021-01-08] MEDS ORDERED: PHYTONADIONE (VIT. K) NEONATAL 1 MG/0.5 ML AMP ONE (10:05)
[2021-01-08] MEDS ORDERED: ERYTHROMYCIN OPHTH OINT 1 GM (SINGLE USE) TUBE ONE (10:05)
[2021-01-08] MEDS ORDERED: PREN-102 PO (12:56)
[2021-01-08] MEDS ORDERED: CATHETER FLUSH 10 ML SYR IV SCH (14:00)
[2021-01-08 21:29] LABS: HEPATITIS C ANTIBODY C Non-Reactive (Non-Reactive)
[2021-01-08] MEDS ORDERED: ceFAZolin INJECTION 1,000 MG in WATER (STERILE) FOR INJECTION 10 ML IV SCH (22:00)
== END 2021-01-08 15:45 | disposition left against medical advice (07) | DRG 832 ==
LOC: WSo 06:24 → LDRP 06:26 → WSo 06:41 → LDRP 06:41
PROVIDERS: ADMIT Family Medicine; ATTEND Family Medicine
DX: O60.03 Preterm labor without delivery, third trimester (principal); O23.43 Unspecified infection of urinary tract in pregnancy, third trimester; Z3A.34 34 weeks gestation of pregnancy; O99.820 Streptococcus B carrier state complicating pregnancy; Z87.891 Personal history of nicotine dependence; Z88.0 Allergy status to penicillin; Z20.822 Contact with and (suspected) exposure to COVID-19
CPT/HCPCS: 36415; 80306; 81000; 82962; 85025; 86703; 86762; 86780; 86803; 86850; 86900; 86901; 87340; 87491; 87591

== ENCOUNTER 2023-08-28 02:03 | Inpatient (IN) | payer MEDICAID ==
[2023-08-28] VITALS (18 sets, daily range): BP systolic 129–165; BP diastolic 64–87
[~2023-08-28] VITALS: Ht 160 cm; Wt 85.7 kg
[~2023-08-28 02:03] MED LIST changes: +PREN-102 PO
[2023-08-28] MEDS ORDERED: MINERAL OIL 30 ML UDC TOP PRN (02:15)
[2023-08-28] MEDS ORDERED: LACTATED RINGERS 1,000 ML 500 ML IV PRN (02:15)
[2023-08-28] MEDS ORDERED: D5 LR 1,000 ML IV SOLN 1,000 ML IV SCH (02:15)
[2023-08-28] MEDS ORDERED: LIDOCAINE 2% w/EPI 1:200,000 20 ML VIAL INJ PRN (02:15)
[2023-08-28] MEDS ORDERED: OXYTOCIN DRIP PRE-MIX 500 ML IV ONE ×2 (02:35→02:52)
[2023-08-28 02:36] LABS: BASOPHILS # (AUTO) 0.1 10^3/uL (0.0-0.1); BASOPHILS % (AUTO) 0 % (0-10); EOSINOPHILS # (AUTO) 0.1 10^3/uL (0.0-0.3); EOSINOPHILS % (AUTO) 0 % (0-10); HEMATOCRIT 30 % (35-52); HEMOGLOBIN 10.2 g/dL (11.5-16.0); LYMPHOCYTES # (AUTO) 5.6 10^3/uL (1.0-4.0); LYMPHOCYTES % (AUTO) 35 % (12-44); MEAN CORPUSCULAR HEMOGLOBIN 30 pg (25-34); MEAN CORPUSCULAR HGB CONC 34 g/dL (32-36); MEAN CORPUSCULAR VOLUME 89 fL (80-99); MONOCYTES % (AUTO) 6 % (0-12); NEUTROPHILS # (AUTO) 8.9 10^3/uL (1.8-7.8); NEUTROPHILS % (AUTO) 55 % (42-75); PLATELET COUNT 215 10^3/uL (130-400); WHITE BLOOD COUNT 16.1 10^3/uL (4.3-11.0)
[2023-08-28] MEDS ORDERED: fentaNYL 2 mcg/ml BUPIVA 0.125 0 ML ONE (02:38)
[2023-08-28 03:08] LABS: BAND NEUTROPHILS 4 %; LYMPHOCYTES % (MANUAL) 33 %; METAMYELOCYTES % 2 %; MONOCYTES % (MANUAL) 10 %; NEUTROPHILS % (MANUAL) 51 %
--- NOTE | 2023-08-28 03:27 | History & Physical-OB ---
OB - Chief Complaint & HPI Date/Time Date of Admission: Date of Admission: Aug 28, 2023 at 02:08 Date seen by a Provider: Aug 28, 2023 Time Seen by a Provider: 02:40 Chief Complaint/History OB-Reason for Admission/Chief: Onset of Labor Hx : 5 Hx Para: 2 Expected Date of Delivery: Sep 02, 2023 Gestational Age in Weeks: 39 Gestational Age in Days: 2 Other reason for admission: Onset of labor at home. Ctxs started 2-3 hrs prior to arrival. No gush of fluid but water did break upon arrival at hospital. Clear/bloody History of Labs O+, Ab neg, Rub Imm HIV/RPR/hepB/C NR Normal 1 hr GTT GBS neg Allergies and Home Medications Allergies Coded Allergies: Penicillins (Verified Allergy, Intermediate, ANAPHYLAXIS, pt has received Rocephin w/o issue, 01/08/21) Patient Home Medication List Home Medication List Reviewed: Yes Vits #93/Iron Fum/FA ( Formula Tablet) 1 Each Tablet, 1 EACH PO DAILY, (Reported) Entered as Reported by: MIGUEL JENSEN on 01/08/21 1256 OB - History Hx of Present Care: Yes Ultrasounds: Normal mid trimester US Obstetrical Complications: None Medical Complications: None Obstetrical History Hx : 5 Hx Para: 2 Hx # Term Pregnancies: 1 Hx # Pregnancies: 1 Number of Living Children: 3 Hx Termination: No Hx Total # of Abortions (Spona: 2 Hx Multiple Gestation: Yes Hx Stillbirth: No Hx Complication: No Hx Induced Hypertens: No Hx Maternal Gestational Diabet: No Delivery History Hx Dystocia: No Hx Large For Gestational Age I: No Hx Small for Gestational Age I: No Hx Section: No Hx Vaginal Delivery Post C-Sec: No Hx Blood Disorders: No Adverse Rxn to Tranfusion: No Patient Past Medical History PMHx: Chronic fatigue syndrome Migraines Depression Anxiety SurgHx: [place] teeth LEEP Social History/Family History Alcohol Use: Denies Use Recreational Drug Use: No Smoking Cessation: Current every day smoker 2nd Hand Smoke Exposure: Yes Immunizations Tetanus Booster (TDap): Less than 5yrs Rubella: immune RPR/VDRL: Negative GBS Status: Negative HBsAG: Negative OB - Admission Exam Physical Exam HEENT: NCAT Heart: Rhythm Normal Lungs: Clear Abdomen: Gravid Cervical Dilatation: 10cm Effacement: 100% Station: +1 Membranes: Ruptured Amniotic Fluid: Clear Heart Rate: 130's Accelerations: Accelerations Present Decelerations: No Decelerations Short Term Variability: Present Senior Care Variability: Average (6-25) Contractions on Admission: < 5 Minutes Apart Intensity: Firm Labs Laboratory Tests Test 08/28/23 02:29 Range/Units White Blood Count 16.1 H 4.3-11.0 10^3/uL Red Blood Count 3.41 L 3.80-5.11 10^6/uL Hemoglobin 10.2 L 11.5-16.0 g/dL Hematocrit 30 L 35-52 % Mean Corpuscular Volume 89 80-99 fL Mean Corpuscular Hemoglobin 30 25-34 pg Mean Corpuscular Hemoglobin Concent 34 32-36 g/dL Red Cell Distribution Width 13.8 10.0-14.5 % Platelet Count 215 130-400 10^3/uL Mean Platelet Volume 12.0 9.0-12.2 fL Immature Granulocyte % (Auto) 3 % Neutrophils (%) (Auto) 55 42-75 % Lymphocytes (%) (Auto) 35 12-44 % Monocytes (%) (Auto) 6 0-12 % Eosinophils (%) (Auto) 0 0-10 % Basophils (%) (Auto) 0 0-10 % Neutrophils # (Auto) 8.9 H 1.8-7.8 10^3/uL Lymphocytes # (Auto) 5.6 H 1.0-4.0 10^3/uL Monocytes # (Auto) 1.0 0.0-1.0 10^3/uL Eosinophils # (Auto) 0.1 0.0-0.3 10^3/uL Basophils # (Auto) 0.1 0.0-0.1 10^3/uL Immature Granulocyte # (Auto) 0.4 H 0.0-0.1 10^3/uL Neutrophils % (Manual) 51 % Lymphocytes % (Manual) 33 % Monocytes % (Manual) 10 % Metamyelocytes % 2 % Band Neutrophils 4 % Syphilis Total Antibody Negative Negative OB - Assessment/Plan/Diagnosis Assessment Assessment: active labor Admission Dx Third Trimester 39 week gestation Admission Status: Inpatient Order (span 2 midnights) Reason for Inpatient Admission: Labor Plan Plan: Expectant Management Other Plan 32 yo @ 39.2 wga here in active labor Plan - Active labor with clear SROM - GBS neg - Expectant management TARUN BONE MD Aug 28, 2023 03:27
--- NOTE | 2023-08-28 03:34 | OB Labor & Delivery Record ---
Vag Delivery Note Vag Delivery Note Date of Delivery: 08/28/23 Preoperative Diagnosis: Bernadette Hines is a (32 /Para 5 / 2,Gestational Age (wks)39.2 wga here in active labor Postoperative Diagnosis: Same Attending Surgeon/Physician: Tarun Montesinos MD Photocopying Machine Operator: None Anesthesia: Natural Delivery Type: @ 0301 Findings: Viable male , apgars 8/9, weight 6#12, 3070 grams Lacerations: left labial abrasion Intact placenta with 3 vessel cord. No nuchal cord, body cord or shoulder dystocia Estimated Blood Loss: 100 ml Complications: None Condition: Stable Description of Procedure: The patient is a 32 year old female who presented in active labor. She was admitted and informed consent was obtained. Her labor course was unremarkable. She progressed to complete dilatation and began to push. She was then set up for delivery. The infant's head was delivered atraumatically in the SOUTH position. The shoulders and remainder of the infant's body were then delivered without difficulty. Upon delivery, the infant was vigorous and placed on maternal chest and the mouth and nares were bulb suctioned. After a 2 min delay cord was doubly clamped and cut by FOB and the infant remained on maternal chest. An intact placenta with 3-vessel cord delivered via Jacob and there was found to be minimal bleeding.~ Vigorous fundal massage was performed and the fundus was found to be firm. IV oxytocin was given. Examination of the vagina and perineum revealed a left labial abrasion that did not require repair. Following the repair, sponge, instrument and needle counts were correct. Mom and baby were both in stable condition in the labor suite. Vitals - Labs Labs Laboratory Tests 08/28/23 02:29: White Blood Count 16.1H, Red Blood Count 3.41L, Hemoglobin 10.2L, Hematocrit 30L , Mean Corpuscular Volume 89, Mean Corpuscular Hemoglobin 30, Mean Corpuscular Hemoglobin Concent 34, Red Cell Distribution Width 13.8, Platelet Count 215, Mean Platelet Volume 12.0, Immature Granulocyte % (Auto) 3, Neutrophils (%) (Auto) 55, Lymphocytes (%) (Auto) 35, Monocytes (%) (Auto) 6, Eosinophils (%) (Auto) 0, Basophils (%) (Auto) 0, Neutrophils # (Auto) 8.9H, Lymphocytes # (Auto) 5.6H, Monocytes # (Auto) 1.0, Eosinophils # (Auto) 0.1, Basophils # (Auto) 0.1, Immature Granulocyte # (Auto) 0.4H, Neutrophils % (Manual) 51, Lymphocytes % (Manual) 33, Monocytes % (Manual) 10, Metamyelocytes % 2, Band Neutrophils 4, Syphilis Total Antibody Negative TARUN MONTESINOS MD Aug 28, 2023 03:34
[2023-08-28] MEDS: OXYTOCIN DRIP PRE-MIX 500 ML IV SCH ×2 (03:42→03:43)
[2023-08-28] MEDS ORDERED: BENZOCAINE/MENTHOL (DERMOPLAST) 56 ML CAN TP PRN (03:45)
[2023-08-28] MEDS ORDERED: WITCH HAZEL(TUCKS) 40 EA JAR TOP PRN (03:45)
[2023-08-28] MEDS: ACETAMINOPHEN 500 MG TABLET PO SCH ×4 (04:25→23:31)
[2023-08-28] MEDS: IBUPROFEN 600 MG TABLET PO SCH ×4 (04:25→23:30)
[2023-08-28] MEDS ORDERED: CATHETER FLUSH 10 ML SYR IV SCH ×2 (06:00)
[2023-08-28] MEDS: PRENATAL VITAMIN TABLET PO SCH (12:10)
[2023-08-28] MEDS: DOCUSATE SODIUM 100 MG CAPSULE PO SCH ×2 (12:11→19:55)
[2023-08-29 05:02] VITALS: BP 114/64
[2023-08-29] MEDS: ACETAMINOPHEN 500 MG TABLET PO SCH ×2 (05:04→08:57)
[2023-08-29] MEDS: IBUPROFEN 600 MG TABLET PO SCH ×2 (05:04→11:20)
[2023-08-29 05:38] LABS: BASOPHILS # (AUTO) 0.1 10^3/uL (0.0-0.1); BASOPHILS % (AUTO) 0 % (0-10); EOSINOPHILS # (AUTO) 0.1 10^3/uL (0.0-0.3); EOSINOPHILS % (AUTO) 1 % (0-10); HEMATOCRIT 28 % (35-52); HEMOGLOBIN 9.2 g/dL (11.5-16.0); LYMPHOCYTES # (AUTO) 5.2 10^3/uL (1.0-4.0); LYMPHOCYTES % (AUTO) 37 % (12-44); MEAN CORPUSCULAR HEMOGLOBIN 30 pg (25-34); MEAN CORPUSCULAR HGB CONC 33 g/dL (32-36); MEAN CORPUSCULAR VOLUME 90 fL (80-99); MEAN PLATELET VOLUME 12.5 fL (9.0-12.2); MONOCYTES # (AUTO) 0.8 10^3/uL (0.0-1.0); MONOCYTES % (AUTO) 6 % (0-12); NEUTROPHILS # (AUTO) 7.7 10^3/uL (1.8-7.8); NEUTROPHILS % (AUTO) 55 % (42-75); PLATELET COUNT 218 10^3/uL (130-400)
[2023-08-29 08:45] VITALS: BP 126/68
[2023-08-29] MEDS: PRENATAL VITAMIN TABLET PO SCH (08:56)
[2023-08-29] MEDS: DOCUSATE SODIUM 100 MG CAPSULE PO SCH (08:57)
[2023-08-29] MEDS ORDERED: FLU QUADRIvalent (6 months+) 60 mcg/0.5 ml 2023-2024 (FLUARIX) IM ONE (10:00)
--- NOTE | 2023-08-29 10:14 | Discharge Summary ---
Diagnosis/Chief Complaint Date of Admission Aug 28, 2023 at 02:08 Date of Discharge 08/29/23 Admission Diagnosis Admission Diagnosis Third Trimester 39 week gestation Discharge Diagnosis Term @ 39 weeks Discharge Summary-Simple/Stand Procedures Discharge Physical Examination Allergies: Coded Allergies: Penicillins (Verified Allergy, Intermediate, ANAPHYLAXIS, pt has received Rocephin w/o issue, 01/08/21) Vitals & I&Os Vital Sign - Last 12Hours Date Time Temp Pulse Resp B/P (MAP) Pulse Ox O2 Delivery O2 Flow Rate FiO2 08/29/23 08:45 36.7 60 18 126/68 (87) 98 Room Air General Appearance: Alert, Oriented X3, No Acute Distress Respiratory: Clear to Auscultation, Normal Air Movement Cardiovascular: Regular Rate, No Murmurs Abdominal: Normal Bowel Sounds, Soft, No Tenderness, No Masses, Other (Fundus firm and below umbilicus) Extremities: No Edema, No Tenderness/Swelling Neuro: Normal Speech Psych/Mental Status: Mental Status NL, Mood NL Hospital Course See final discharge diagnosis. Discussion & Recommendations 32 yo G5 now P3 delivered term male infant via @ 39 weeks Discharge Condition at discharge stable Instructions to patient/family Please see electronic discharge instructions given to patient. Discharge Medications Reviewed and agree with Discharge Medication list on patient's Discharge Instruction sheet TARUN BONE MD Aug 29, 2023 10:14
[2023-08-29] MEDS ORDERED: DOCU100C37 PO (10:17)
[2023-08-29] MEDS ORDERED: IBUP-844 PO (10:17)
[2023-08-29] MEDS ORDERED: FERR-65 PO (10:17)
--- NOTE | 2023-08-29 10:18 | Discharge Summary ---
Discharge Inst-Women's Serv Depart Medications New, Converted or Re-Newed RX: Transmitted to Pharmacy New Medications: Ferrous Sulfate (Feosol) 325 Mg (65 Mg Iron) Tablet 325 MG PO daily for 30 Days, #30 TAB Docusate Sodium (Docusate Sodium) 100 Mg Capsule 100 MG PO BID, #14 CAP Ibuprofen (Ibu) 600 Mg Tablet 600 MG PO Q6H, #30 TAB Continued Medications: Vits #93/Iron Fum/FA ( Formula Tablet) 1 Each Tablet 1 EACH PO DAILY, TAB Follow Up/Instructions Goal/Follow Up: 6 weeks with Y[facility] Activity Activity: Activity as Tolerated Driving Instructions: You May Drive NO SMOKING: NO SMOKING Nothing Inside Vagina: No Douching, No [place], No Tampons Diet Discharge Diet: No Restrictions Symptoms to Report to DrTashi: Appetite Changes, Bleeding Excessive, Fever Over 101 Degrees F TARUN BONE MD Aug 29, 2023 10:18
[2023-08-29 13:35] VITALS: BP 126/68
== END 2023-08-29 13:35 | disposition home or self-care (01) | DRG 807 ==
LOC: LDRP 02:03 → WSo 02:03 → LDRP 02:08
PROVIDERS: ADMIT Family Medicine; ATTEND Family Medicine
PROC: 10E0XZZ Delivery of Products of Conception, External Approach (ICD-10-PCS; principal; 2023-08-28)
DX: O99.334 Smoking (tobacco) complicating childbirth (principal); Z37.0 Single live birth; O71.82 Other specified trauma to perineum and vulva; F17.200 Nicotine dependence, unspecified, uncomplicated; Z3A.39 39 weeks gestation of pregnancy; Z88.0 Allergy status to penicillin; Z23 Encounter for immunization
CPT/HCPCS: 36415; 85007; 85025; 85027; 86780; 86850; 86900; 86901; 90686; 99212